=== PATIENT | male | born 1965 | race Caucasian/White ===

== ENCOUNTER 2018-01-18 20:36 | Inpatient (IN) | payer OTHER ==
[~2018-01-18] VITALS: Ht 185.4 cm; Wt 163.3 kg
--- NOTE | 2018-01-18 20:48 | NUR ---
DR JOANA RESENDEZ MD AT BEDSIDE FOR MSE.
[2018-01-18] MEDS ORDERED: ACETAMINOPHEN ES 500 MG TABLET PO ONE (21:00)
[2018-01-18] MEDS ORDERED: NITROGLYCERIN OINT 1 GM PACKET TP ONE ×2 (21:00→21:09)
[2018-01-18] MEDS ORDERED: ASPIRIN 81 MG TAB.CHEW PO ONE (21:00)
[2018-01-18] MEDS ORDERED: NITROGLYCERIN 0.4 MG/TAB BOTTLE SL ONE ×2 (21:00→21:09)
--- NOTE | 2018-01-18 21:05 | NUR ---
RADIOLOGY AT BEDSIDE FOR CHEST XRAY.
[2018-01-18] MEDS ORDERED: ACETAMINOPHEN ES 500 MG TABLET ONE (21:09)
[2018-01-18] MEDS ORDERED: ASPIRIN 81 MG TAB.CHEW ONE (21:09)
[2018-01-18] MEDS ORDERED: METF10004 PO (21:13)
[2018-01-18] MEDS ORDERED: INSU100V7 SQ (21:13)
[2018-01-18] MEDS ORDERED: AMLO5TAB4 PO (21:13)
[2018-01-18] MEDS ORDERED: LOSA100T3 PO (21:13)
[2018-01-18] MEDS ORDERED: GLIP10TA11 PO (21:13)
[2018-01-18] MEDS ORDERED: HYDR25TA4 PO (21:13)
[2018-01-18 21:14] LABS: BASOPHILS # (AUTO) 0.2 K/uL (0.0-8.0); BASOPHILS % (AUTO) 1.5 % (0.0-2.0); EOSINOPHILS # (AUTO) 0.3 K/uL (0.0-0.7); EOSINOPHILS % (AUTO) 2.9 % (0.0-7.0); HEMATOCRIT 42.5 % (36.7-47.1); HEMOGLOBIN 14.6 g/dL (12.5-16.3); LYMPHOCYTES # (AUTO) 3.1 K/uL (20.0-40.0); LYMPHOCYTES % (AUTO) 26.7 % (20.5-51.5); MEAN CORPUSCULAR HEMOGLOBIN 30.4 uug (23.8-33.4); MEAN CORPUSCULAR HGB CONC 34 g/dL (32.5-36.3); MEAN CORPUSCULAR VOLUME 88.3 fL (73.0-96.2); MONOCYTES % (AUTO) 8.5 % (0.0-11.0); NEUTROPHILS % (AUTO) 60.4 % (38.5-71.5); PLATELET COUNT (AUTO) 245 K/uL (152-348); RED BLOOD CELL COUNT(AUTO) 4.81 MIL/uL (4.06-5.63); WHITE BLOOD COUNT (AUTO) 11.6 K/uL (3.6-10.2)
--- NOTE | 2018-01-18 21:20 | NUR ---
NITRO ADMINISTRATION: 2109- BP 141/91, CHEST PAIN 11/03 2114- BP 130/93, CHEST PAIN 09/04 2119- BP 133/73, CHEST PAIN 07/06
[2018-01-18 21:24] LABS: POTASSIUM 3.7 mmol/L (3.5-5.1)
[2018-01-18 21:37] LABS: BILIRUBIN,DIRECT 0.1 mg/dL (0.0-0.2); BILIRUBIN,TOTAL 0.3 mg/dL (0.2-1.0); TOTAL PROTEIN, SERUM 7.4 g/dL (6.4-8.2)
--- NOTE | 2018-01-18 22:19 | NUR ---
REPORT GIVEN TO BAKARI CALRK.
[2018-01-18] MEDS ORDERED: ENALAPRILAT DIHYDRATE 1.25 MG/1 ML VIAL IV PRN (22:45)
[2018-01-18] MEDS ORDERED: ACETAMINOPHEN 325 MG TABLET PO PRN (22:45)
[2018-01-18] MEDS ORDERED: HYDROCODONE/APAP 5-325MG TABLET PO PRN (22:45)
[2018-01-18] MEDS ORDERED: INSULIN GLARGINE,HUM 300 UNITS/3 ML CARTRIDGE SQ SCH (22:45)
[2018-01-18] MEDS ORDERED: ONDANSETRON 4 MG/2 ML VIAL IV PRN (22:45)
--- NOTE | 2018-01-18 23:05 | NUR ---
Pt. admitted to TELE, under care of Dr. YORK Belongs List completed
[2018-01-18 23:14] VITALS: BP 115/49
--- NOTE | 2018-01-18 23:15 | NUR ---
Received patient from ER via [employer]. A/O x 4. TELE SR. Patient is able to ambulate with minimal assistance. Denies any pain and SOB. Vital signs taken, stable. Belongings list done. head to toe assessment done, lungs sounds diminished, noted bilateral leg edema +1 with purple/black discoloration. Safety initiated. Call light within reach. Room is kept clutter free. Will continue to monitor.
[2018-01-18] MEDS: NICOTINE 21 MG/24HR PATCH TD SCH (23:29)
[2018-01-19] MEDS ORDERED: INSULIN GLARGINE,HUM 300 UNITS/3 ML CARTRIDGE SQ ONE (00:31)
[2018-01-19 04:00] VITALS: BP 107/52
--- NOTE | 2018-01-19 05:42 | NUR ---
Patient slept t/o shift. No acute distress noted. TELE SR. Denies pain or SOB. Nicotine patch on the right upper arm. Vital signs stable. Safety and comfort measures maintained t/o shift. All meds given as ordered. All needs met.
[2018-01-19 06:25] LABS: ABG HCO3 23.1 mmol/L; ABG PCO2 33.3 mmHg (35.0-45.0); ABG PH 7.459 (7.350-7.450); ABG PO2 101.9 mmHg (75.0-100.0); ABG SITE LEFT RADIAL; ABG TOTAL HEMOGLOBIN 14.3 G/dL (13.5-18.0); COHb 3.5 % (0.5-1.5); MetHb 0.3 % (0.0-1.5); O2Hb 93.1 % (94.0-97.0); VENT MODE Room Air
[2018-01-19 06:45] LABS: BASOPHILS # (AUTO) 0.1 K/uL (0.0-8.0); BASOPHILS % (AUTO) 0.6 % (0.0-2.0); EOSINOPHILS # (AUTO) 0.3 K/uL (0.0-0.7); EOSINOPHILS % (AUTO) 3.6 % (0.0-7.0); HEMATOCRIT 41.6 % (36.7-47.1); LYMPHOCYTES # (AUTO) 2.6 K/uL (20.0-40.0); LYMPHOCYTES % (AUTO) 29.4 % (20.5-51.5); MEAN CORPUSCULAR HEMOGLOBIN 29.4 uug (23.8-33.4); MEAN CORPUSCULAR HGB CONC 33 g/dL (32.5-36.3); MEAN CORPUSCULAR VOLUME 88.1 fL (73.0-96.2); MONOCYTES # (AUTO) 0.7 K/uL (2.0-10.0); MONOCYTES % (AUTO) 8.2 % (0.0-11.0); NEUTROPHILS # (AUTO) 5.1 K/uL (1.8-8.9); NEUTROPHILS % (AUTO) 58.2 % (38.5-71.5); PLATELET COUNT (AUTO) 242 K/uL (152-348); RED BLOOD CELL COUNT(AUTO) 4.72 MIL/uL (4.06-5.63); WHITE BLOOD COUNT (AUTO) 8.8 K/uL (3.6-10.2)
[2018-01-19 06:52] LABS: CREATININE 0.9 mg/dL (0.6-1.3); MAGNESIUM 1.9 mg/dL (1.8-2.4); PHOSPHOROUS 4.1 mg/dL (2.5-4.9); POTASSIUM 3.7 mmol/L (3.5-5.1); URIC ACID 3.3 mg/dL (3.5-7.2)
[2018-01-19 07:09] LABS: THYROID STIMULATING HORMONE 1.591 mIU/mL (0.358-3.740)
[2018-01-19] MEDS ORDERED: glipiZIDE 10 MG TABLET PO SCH (07:30)
[2018-01-19] MEDS ORDERED: METFORMIN HCL 500 MG TABLET PO SCH (08:00)
[2018-01-19] MEDS: NICOTINE 21 MG/24HR PATCH TD SCH (08:35)
[2018-01-19] MEDS ORDERED: AMLODIPINE 5 MG TABLET PO SCH (09:00)
[2018-01-19] MEDS ORDERED: ASPIRIN 81 MG TAB.CHEW PO SCH (09:00)
[2018-01-19] MEDS ORDERED: HYDROCHLOROTHIAZIDE 25 MG TABLET PO SCH (09:00)
[2018-01-19 11:47] VITALS: BP 118/61
[2018-01-19] MEDS ORDERED: LOSA50TA3 PO (14:27)
[2018-01-19] MEDS ORDERED: ATOR10TA PO (14:27)
[2018-01-19] MEDS ORDERED: ASPI81TA31 PO (14:27)
[2018-01-19 15:19] VITALS: BP 111/48
--- NOTE | 2018-01-19 15:28 | NUR ---
Discharge instructions given to patient. Pt verbalized understanding. Prescription and medication education given by pharmacist. Instructed pt to go to ER for emergency situations. Pt verbalized understanding. Pt denies any c/o pain. IV on left AC d/c. Pt to f/u with PMD within 1 week. Pt refused any vaccinations and to f/u with his PMD re vaccines.
== END 2018-01-19 15:30 | disposition home or self-care (01) | DRG 198 ==
LOC: ER 20:38 → TELE 22:00
PROVIDERS: ADMIT Internal Medicine; ATTEND Internal Medicine
DX: I25.119 Atherosclerotic heart disease of native coronary artery with unspecified angina pectoris (principal); E11.51 Type 2 diabetes mellitus with diabetic peripheral angiopathy without gangrene; D68.69 Other thrombophilia; E44.0 Moderate protein-calorie malnutrition; E11.65 Type 2 diabetes mellitus with hyperglycemia; E66.01 Morbid (severe) obesity due to excess calories; M94.0 Chondrocostal junction syndrome [Tietze]; G47.33 Obstructive sleep apnea (adult) (pediatric); Z68.42 Body mass index [BMI] 45.0-49.9, adult; Z71.3 Dietary counseling and surveillance; Z79.4 Long term (current) use of insulin; F17.210 Nicotine dependence, cigarettes, uncomplicated; E55.9 Vitamin D deficiency, unspecified; E78.5 Hyperlipidemia, unspecified; I11.9 Hypertensive heart disease without heart failure; M48.8X9 Other specified spondylopathies, site unspecified; R60.0 Localized edema
CPT/HCPCS: 36415; 36600; 70030-TC; 71045; 82306; 83735; 84100; 84153; 84443; 84550; 85025; 93005; 93307; A4663; A9150; J1815

== ENCOUNTER 2019-03-01 20:02 | Inpatient (IN) | payer OTHER ==
[~2019-03-01] VITALS: Ht 185.4 cm; Wt 179.7 kg
[~2019-03-01 20:02] MED LIST: AMLO5TAB4 PO; ASPI81TA31 PO; ATOR10TA PO; GLIP10TA11 PO; HYDR25TA4 PO; INSU100V7 SQ; LOSA50TA3 PO; METF-442 PO
[2019-03-01] MEDS ORDERED: methylPREDNISolone SOD SUCC 125 MG/2 ML VIAL IV ONE (21:15)
[2019-03-01] MEDS ORDERED: ALBUTEROL SULFATE 2.5 MG/3 ML NEBU NEB ONE (21:15)
[2019-03-01] MEDS ORDERED: IPRATROPIUM BROMIDE 0.5 MG/2.5 ML NEBU ONE (21:15)
[2019-03-01] MEDS ORDERED: IPRATROPIUM BROMIDE 0.5 MG/2.5 ML NEBU NEB ONE (21:15)
[2019-03-01] MEDS ORDERED: ALBUTEROL SULFATE 2.5 MG/3 ML NEBU ONE ×2 (21:15)
[2019-03-01] MEDS ORDERED: methylPREDNISolone SOD SUCC 125 MG/2 ML VIAL ONE (21:19)
[2019-03-01 21:23] LABS: BASOPHILS # (AUTO) 0.1 K/uL (0.0-8.0); BASOPHILS % (AUTO) 0.6 % (0.0-2.0); EOSINOPHILS # (AUTO) 0.3 K/uL (0.0-0.7); EOSINOPHILS % (AUTO) 2.9 % (0.0-7.0); HEMATOCRIT 40.6 % (36.7-47.1); HEMOGLOBIN 13.2 g/dL (12.5-16.3); LYMPHOCYTES # (AUTO) 1.7 K/uL (20.0-40.0); LYMPHOCYTES % (AUTO) 15.1 % (20.5-51.5); MEAN CORPUSCULAR HGB CONC 33 g/dL (32.5-36.3); MEAN CORPUSCULAR VOLUME 86.1 fL (73.0-96.2); MONOCYTES # (AUTO) 1.1 K/uL (2.0-10.0); MONOCYTES % (AUTO) 9.5 % (0.0-11.0); NEUTROPHILS # (AUTO) 8.2 K/uL (1.8-8.9); NEUTROPHILS % (AUTO) 71.9 % (38.5-71.5); PLATELET COUNT (AUTO) 231 K/uL (152-348); RED BLOOD CELL COUNT(AUTO) 4.71 MIL/uL (4.06-5.63); WHITE BLOOD COUNT (AUTO) 11.4 K/uL (3.6-10.2)
[2019-03-01 21:29] LABS: CREATININE 0.9 mg/dL (0.6-1.3); POTASSIUM 3.6 mmol/L (3.5-5.1)
[2019-03-01 21:40] LABS: BILIRUBIN,DIRECT 0.1 mg/dL (0.0-0.2); BILIRUBIN,TOTAL 0.3 mg/dL (0.2-1.0); TOTAL PROTEIN, SERUM 6.8 g/dL (6.4-8.2)
[2019-03-01] MEDS ORDERED: FUROSEMIDE 20 MG/2 ML VIAL IV ONE (23:15)
[2019-03-01] MEDS ORDERED: ASPIRIN 325 MG TABLET PO ONE (23:15)
[2019-03-01] MEDS ORDERED: ASPIRIN 325 MG TABLET ONE (23:33)
[2019-03-01] MEDS ORDERED: FUROSEMIDE 20 MG/2 ML VIAL ONE (23:33)
[2019-03-02] MEDS ORDERED: Z GUARD REMEDY PASTE 57 GM TUBE TOP PRN (00:45)
[2019-03-02] MEDS ORDERED: DEXTROSE 50% 50 ML DISP.SYRIN IV PRN ×2 (00:45→17:00)
[2019-03-02] MEDS ORDERED: MAGNESIUM HYDROXIDE 30 ML LIQUID UDC PO PRN (00:45)
[2019-03-02] MEDS ORDERED: ONDANSETRON 4 MG/2 ML VIAL IV PRN (00:45)
[2019-03-02] MEDS ORDERED: ACETAMINOPHEN 325 MG TABLET PO PRN (00:45)
[2019-03-02] MEDS ORDERED: HYDROCODONE/APAP 5-325MG TABLET PO PRN (00:45)
[2019-03-02] MEDS: IPRATROPIUM BROMIDE 0.5 MG/2.5 ML NEBU NEB SCH ×4 (01:11→19:45)
[2019-03-02] MEDS: ALBUTEROL SULFATE 2.5 MG/ 0.5 ML NEBU NEB SCH ×4 (01:11→19:45)
[2019-03-02] MEDS ORDERED: ENOXAPARIN SODIUM 40 MG/0.4 ML DISP.SYRIN SQ ONE (01:15)
[2019-03-02 01:22] VITALS: BP 129/75
[2019-03-02 05:07] LABS: *BILIRUBIN,URIN NEGATIVE (NEGATIVE); *BLOOD, URINE NEGATIVE (NEGATIVE); *CLARITY,URINE CLEAR (CLEAR); *COLOR,URINE YELLOW (YELLOW); *KETONES,URINE NEGATIVE (NEGATIVE); *UROBILINOGEN,URINE 0.2 E.U./dl (NORMAL); LEUKOCYTE ESTERASE ,URINE NEGATIVE (NEGATIVE); NITRITE, URINE NEGATIVE (NEGATIVE); UGLUCOSE NEGATIVE (NEGATIVE)
[2019-03-02 05:38] VITALS: BP 114/78
[2019-03-02 06:34] LABS: BASOPHILS % (AUTO) 0.3 % (0.0-2.0); EOSINOPHILS % (AUTO) 0.1 % (0.0-7.0); HEMATOCRIT 39.3 % (36.7-47.1); HEMOGLOBIN 12.9 g/dL (12.5-16.3); LYMPHOCYTES # (AUTO) 0.8 K/uL (20.0-40.0); LYMPHOCYTES % (AUTO) 7.4 % (20.5-51.5); MEAN CORPUSCULAR HEMOGLOBIN 28.8 uug (23.8-33.4); MEAN CORPUSCULAR HGB CONC 33 g/dL (32.5-36.3); MEAN CORPUSCULAR VOLUME 87.7 fL (73.0-96.2); MONOCYTES # (AUTO) 0.2 K/uL (2.0-10.0); MONOCYTES % (AUTO) 2.3 % (0.0-11.0); NEUTROPHILS # (AUTO) 9.7 K/uL (1.8-8.9); NEUTROPHILS % (AUTO) 89.9 % (38.5-71.5); PLATELET COUNT (AUTO) 210 K/uL (152-348); RED BLOOD CELL COUNT(AUTO) 4.49 MIL/uL (4.06-5.63); WHITE BLOOD COUNT (AUTO) 10.8 K/uL (3.6-10.2)
[2019-03-02 06:50] LABS: THYROID STIMULATING HORMONE 1.381 mIU/mL (0.358-3.740)
[2019-03-02 06:52] LABS: BILIRUBIN,TOTAL 0.3 mg/dL (0.2-1.0); CREATININE 0.8 mg/dL (0.6-1.3); PHOSPHOROUS 3.6 mg/dL (2.5-4.9); TOTAL PROTEIN, SERUM 6.7 g/dL (6.4-8.2)
[2019-03-02] MEDS: BLOOD SUGAR DIAGNOSTIC 1 EACH STRIP VI SCH ×4 (06:52→21:23)
[2019-03-02] MEDS ORDERED: HYDROCHLOROTHIAZIDE 25 MG TABLET PO SCH (09:00)
[2019-03-02] MEDS: ASPIRIN 81 MG TAB.CHEW PO SCH (09:07)
[2019-03-02] MEDS: methylPREDNISolone SOD SUCC 40 MG/ML VIAL IV SCH ×3 (09:07→16:34)
[2019-03-02] MEDS: LOSARTAN POTASSIUM 50 MG TABLET PO SCH (09:08)
[2019-03-02] MEDS: AMLODIPINE 5 MG TABLET PO SCH (09:09)
[2019-03-02] MEDS: INSULIN REGULAR, HUMAN 300 UNIT/3 ML VIAL SQ PRN ×3 (09:11→16:35)
[2019-03-02 11:43] VITALS: BP 116/61
[2019-03-02] MEDS: FUROSEMIDE 40 MG/4 ML VIAL IV SCH ×2 (13:42→21:09)
[2019-03-02 16:00] VITALS: BP 126/68
[2019-03-02 20:00] VITALS: BP 131/53
[2019-03-02] MEDS: ENOXAPARIN SODIUM 40 MG/0.4 ML DISP.SYRIN SQ SCH (21:10)
[2019-03-02] MEDS: INSULIN GLARGINE,HUM 300 UNITS/3 ML CARTRIDGE SQ SCH (21:22)
[2019-03-02] MEDS: INSULIN REGULAR, HUMAN 300 UNITS/3 ML VIAL SQ PRN (21:23)
[2019-03-03] VITALS: BP 127/65
[2019-03-03] MEDS: ALBUTEROL SULFATE 2.5 MG/ 0.5 ML NEBU NEB SCH ×4 (01:04→21:17)
[2019-03-03] MEDS: IPRATROPIUM BROMIDE 0.5 MG/2.5 ML NEBU NEB SCH ×4 (01:04→21:17)
[2019-03-03 04:00] VITALS: BP 102/58
[2019-03-03] MEDS: BLOOD SUGAR DIAGNOSTIC 1 EACH STRIP VI SCH ×4 (06:37→20:33)
[2019-03-03 06:40] LABS: BASOPHILS % (AUTO) 0.1 % (0.0-2.0); EOSINOPHILS % (AUTO) 0.1 % (0.0-7.0); HEMATOCRIT 37.9 % (36.7-47.1); HEMOGLOBIN 12.5 g/dL (12.5-16.3); LYMPHOCYTES # (AUTO) 1.3 K/uL (20.0-40.0); LYMPHOCYTES % (AUTO) 8.7 % (20.5-51.5); MEAN CORPUSCULAR HEMOGLOBIN 28.3 uug (23.8-33.4); MEAN CORPUSCULAR HGB CONC 33 g/dL (32.5-36.3); MEAN CORPUSCULAR VOLUME 85.5 fL (73.0-96.2); MONOCYTES # (AUTO) 1.3 K/uL (2.0-10.0); MONOCYTES % (AUTO) 8.9 % (0.0-11.0); NEUTROPHILS % (AUTO) 82.2 % (38.5-71.5); PLATELET COUNT (AUTO) 243 K/uL (152-348); RED BLOOD CELL COUNT(AUTO) 4.43 MIL/uL (4.06-5.63); WHITE BLOOD COUNT (AUTO) 14.6 K/uL (3.6-10.2)
[2019-03-03 06:45] LABS: POTASSIUM 3.7 mmol/L (3.5-5.1)
[2019-03-03] MEDS: ASPIRIN 81 MG TAB.CHEW PO SCH (08:26)
[2019-03-03] MEDS: FUROSEMIDE 40 MG/4 ML VIAL IV SCH ×2 (08:26→20:26)
[2019-03-03] MEDS: methylPREDNISolone SOD SUCC 40 MG/ML VIAL IV SCH ×2 (08:26→20:34)
[2019-03-03] MEDS: INSULIN REGULAR, HUMAN 300 UNITS/3 ML VIAL SQ PRN ×2 (08:27→20:48)
[2019-03-03] MEDS: AMLODIPINE 5 MG TABLET PO SCH (08:28)
[2019-03-03] MEDS: LOSARTAN POTASSIUM 50 MG TABLET PO SCH (08:28)
[2019-03-03 11:57] VITALS: BP 110/54
[2019-03-03] MEDS ORDERED: METO25TA6 PO (12:14)
[2019-03-03] MEDS ORDERED: WARF5TAB77 PO (12:15)
[2019-03-03] MEDS: INSULIN REGULAR, HUMAN 300 UNIT/3 ML VIAL SQ PRN ×2 (12:41→17:13)
[2019-03-03 15:59] VITALS: BP 116/62
[2019-03-03 20:00] VITALS: BP 110/58
[2019-03-03] MEDS: ENOXAPARIN SODIUM 40 MG/0.4 ML DISP.SYRIN SQ SCH (20:28)
[2019-03-03] MEDS: INSULIN GLARGINE,HUM 300 UNITS/3 ML CARTRIDGE SQ SCH (20:38)
[2019-03-04] VITALS: BP 104/48
[2019-03-04] MEDS: IPRATROPIUM BROMIDE 0.5 MG/2.5 ML NEBU NEB SCH ×2 (02:15→08:17)
[2019-03-04] MEDS: ALBUTEROL SULFATE 2.5 MG/ 0.5 ML NEBU NEB SCH ×2 (02:15→08:17)
[2019-03-04 04:00] VITALS: BP 102/45
[2019-03-04] MEDS: BLOOD SUGAR DIAGNOSTIC 1 EACH STRIP VI SCH ×2 (05:57→12:01)
[2019-03-04 06:48] LABS: BASOPHILS % (AUTO) 0.1 % (0.0-2.0); HEMATOCRIT 40.8 % (36.7-47.1); HEMOGLOBIN 13.4 g/dL (12.5-16.3); LYMPHOCYTES # (AUTO) 1.5 K/uL (20.0-40.0); LYMPHOCYTES % (AUTO) 10.2 % (20.5-51.5); MEAN CORPUSCULAR HGB CONC 33 g/dL (32.5-36.3); MEAN CORPUSCULAR VOLUME 85.4 fL (73.0-96.2); MONOCYTES # (AUTO) 0.9 K/uL (2.0-10.0); MONOCYTES % (AUTO) 6.5 % (0.0-11.0); NEUTROPHILS # (AUTO) 12.1 K/uL (1.8-8.9); NEUTROPHILS % (AUTO) 83.2 % (38.5-71.5); PLATELET COUNT (AUTO) 263 K/uL (152-348); RED BLOOD CELL COUNT(AUTO) 4.78 MIL/uL (4.06-5.63); WHITE BLOOD COUNT (AUTO) 14.5 K/uL (3.6-10.2)
[2019-03-04 06:56] LABS: CREATININE 1.1 mg/dL (0.6-1.3); MAGNESIUM 2.2 mg/dL (1.8-2.4); PHOSPHOROUS 4.7 mg/dL (2.5-4.9)
[2019-03-04 08:07] LABS: ABG BASE EXCESS 1.3 mmol/L; ABG HCO3 25.3 mmol/L; ABG PCO2 37.7 mmHg (35.0-45.0); ABG PH 7.444 (7.350-7.450); ABG PO2 70.2 mmHg (75.0-100.0); ABG SITE RIGHT RADIAL; ABG TOTAL HEMOGLOBIN 13.8 G/dL (13.5-18.0); COHb 1.8 % (0.5-1.5); MetHb 0.3 % (0.0-1.5); O2Hb 90.6 % (94.0-97.0); VENT MODE Room Air
[2019-03-04] MEDS: INSULIN REGULAR, HUMAN 300 UNIT/3 ML VIAL SQ PRN ×2 (08:13→12:03)
[2019-03-04] MEDS: ASPIRIN 81 MG TAB.CHEW PO SCH (08:16)
[2019-03-04] MEDS: FUROSEMIDE 40 MG/4 ML VIAL IV SCH (08:16)
[2019-03-04] MEDS: AMLODIPINE 5 MG TABLET PO SCH (08:16)
[2019-03-04] MEDS: methylPREDNISolone SOD SUCC 40 MG/ML VIAL IV SCH (08:16)
[2019-03-04] MEDS: LOSARTAN POTASSIUM 50 MG TABLET PO SCH (08:17)
[2019-03-04] MEDS ORDERED: DILTIAZEM HCL CD 120 MG CAP.SR.24H PO SCH (10:15)
[2019-03-04] MEDS ORDERED: FURO-151 PO (11:41)
[2019-03-04] MEDS ORDERED: METH4TAB3 PO (11:41)
[2019-03-04] MEDS ORDERED: DILT240C88 PO (11:41)
[2019-03-04] MEDS ORDERED: RIVA20TA PO (11:41)
[2019-03-04] MEDS ORDERED: POTA-10 PO (11:41)
[2019-03-04 11:53] VITALS: BP 95/71
[2019-03-04] MEDS ORDERED: RIVAROXABAN 10 MG TABLET PO SCH (18:00)
== END 2019-03-04 13:10 | disposition home or self-care (01) | DRG 140 ==
LOC: ER 20:02 → TELE3 03-02 00:51
PROVIDERS: ADMIT Nurse Practitioner Acute Care
PROC: 5A09357 Assistance with Respiratory Ventilation, Less than 24 Consecutive Hours, Continuous Positive Airway Pressure (ICD-10-PCS; principal; 2019-03-02)
DX: J44.1 Chronic obstructive pulmonary disease with (acute) exacerbation (principal); I50.31 Acute diastolic (congestive) heart failure; E11.65 Type 2 diabetes mellitus with hyperglycemia; E66.01 Morbid (severe) obesity due to excess calories; I11.0 Hypertensive heart disease with heart failure; Z79.01 Long term (current) use of anticoagulants; Z68.43 Body mass index [BMI] 50.0-59.9, adult; F17.210 Nicotine dependence, cigarettes, uncomplicated; G47.33 Obstructive sleep apnea (adult) (pediatric); E78.5 Hyperlipidemia, unspecified; D72.829 Elevated white blood cell count, unspecified; T38.0X5A Adverse effect of glucocorticoids and synthetic analogues, initial encounter; Y92.89 Other specified places as the place of occurrence of the external cause; Z79.4 Long term (current) use of insulin; Z79.899 Other long term (current) drug therapy; Z87.01 Personal history of pneumonia (recurrent); I48.0 Paroxysmal atrial fibrillation
CPT/HCPCS: 36415; 36600; 70030-TC; 71045; 76700; 83735; 84100; 84443; 85025; 85610; 85730; 87040; 93005; 93307; 94640; 94660; 94664; A4663; G0378; J1650; J1815; J1940; J2920; J2930; J3590